=== PATIENT | male | born 1955 | race Caucasian/White ===

== ENCOUNTER → 2024-11-02 | Outpatient (CLI) | payer MEDICARE ==
[2024-11-02 15:33] LABS: Basophils # (A) 0.05 X 10*3/uL (0.00-0.10); Basophils % (A) 0.7 %; Eosinophils # (A) 0.13 X 10*3/uL (0.04-0.35); Eosinophils % (A) 1.9 %; HCT 47.6 % (39.6-50.0); HGB 15.6 g/dL (13.0-17.0); Immature Grans, Automated 0.30 %; Lymphocytes # (A) 2.47 X 10*3/uL (0.90-5.00); Lymphocytes % (A) 35.7 %; MCH 30.5 pg (27.0-32.0); MCHC 32.8 g/dL (32.0-37.0); MCV 93.0 FL (80.0-97.0); Monocytes # (A) 0.52 X 10*3/uL (0.20-1.00); Monocytes % (A) 7.5 %; NRBC Per 100 WBC 0 X 10*3/uL (0.00-0.01); Neutrophils # (A) 3.72 X 10*3/uL (1.80-7.70); Neutrophils % (A) 53.9 %; Platelet Count 279 X 10*3/uL (140-440); RBC 5.12 X 10*6/uL (4.40-5.60); RDW 12.9 % (11.5-14.5); WBC 6.91 X 10*3/uL (4.50-10.00)
[2024-11-02 15:46] LABS: Anion Gap 13.00 mmol/L (4.00-12.00); BUN/Creat Ratio 13.62 Ratio (12.00-20.00); Blood Urea Nitrogen 17.7 mg/dL (9.0-27.0); Calcium 9.8 mg/dL (8.7-10.3); Carbon Dioxide 25.0 mmol/L (21.6-31.8); Chloride 102 mmol/L (96-109); Glucose 156 mg/dL (70-110); Potassium 3.8 mmol/L (3.5-5.5); Sodium 140 mmol/L (135-145)
== END | disposition home or self-care (01) ==
LOC: LABPAT 09:14
PROVIDERS: ATTEND Urology
DX: Z01.812 Encounter for preprocedural laboratory examination (principal); R97.20 Elevated prostate specific antigen [PSA]
CPT/HCPCS: 80048; 85025

== ENCOUNTER 2024-11-05 09:13 | Day surgery (SDC) | payer MEDICARE ==
[2024-11-02 13:18] VITALS: BMI 37.5
--- NOTE | 2024-11-02 17:41 | P.GSHP ---
History of Present Illness H&P Date: 11/02/24 Chief Complaint: Elevated PSA level The patient is a 69-year-old white male with a persistently elevated PSA level, most recently 11.5. He has no family history of prostate cancer. He reports moderate obstructive voiding symptoms but has been verified to be emptying his bladder completely. Prostate MRI reveals a prostate volume of 201 cc with a PI- RADS 4 lesion seen within the right apical peripheral zone. - Cardiovascular Cardiovascular: Reports high blood pressure - Genitourinary (Male) Genitourinary: Reports nocturia, Reports urinary hesitancy Past Medical History Past Medical History: Hyperlipidemia, Hypertension, Prostate Disorder Additional Past Medical History / Comment(s): Elevated PSA; Hx Hep C History of Any Multi-Drug Resistant Organisms: None Reported Past Surgical History: Appendectomy, Hernia Repair Additional Past Surgical History / Comment(s): Back surgery; elbow surgery Past Anesthesia/Blood Transfusion Reactions: No Reported Reaction Smoking Status: Never smoker Medications and Allergies Home Medications Medication Instructions Recorded Confirmed Type Atorvastatin Calcium 20 mg PO DAILY 11/02/24 11/02/24 History Ciprofloxacin HCl [Cipro] 500 mg PO BID 11/02/24 11/02/24 History Ibuprofen [Motrin Ib] 200 mg PO DIRECTED 11/02/24 11/02/24 History Lisinopril-Hctz 20-25 mg 20 mg PO BID 11/02/24 11/02/24 History [Zestoretic 20-25] Magnesium 300 mg PO DAILY 11/02/24 11/02/24 History Metoprolol Succinate (ER) [Toprol 25 mg PO DAILY 11/02/24 11/02/24 History Xl] Metoprolol Succinate (ER) [Toprol 100 mg PO DAILY 11/02/24 11/02/24 History Xl] Multivit-Minerals/Folic Acid 1 cap PO DAILY 11/02/24 11/02/24 History [Centrum Men 50 Plus Multigummy] Tamsulosin HCl [Flomax] 0.4 mg PO HS 11/02/24 11/02/24 History amLODIPine BESYLATE 10 mg PO DAILY 11/02/24 11/02/24 History Allergies Allergy/AdvReac Type Severity Reaction Status Date / Time No Known Allergies Allergy Verified 11/02/24 13:05 Surgical - Exam - General well developed, well nourished, no distress - Respiratory normal respiratory effort - Genitourinary normal penis with no external lesions, testicles non-tender - Rectum Rectum: normal sphincter tone, no masses, other (Prostate enlarged but smooth) - Psychiatric oriented to time, oriented to person, oriented to place, speech is normal, memory intact Assessment and Plan (1) Elevated prostate specific antigen [PSA] Status: Acute Code(s): R97.20 - ELEVATED PROSTATE SPECIFIC ANTIGEN [PSA] SNOMED Code(s): 720160974 Plan: The patient will undergo MRI-Ultrasound fusion transrectal biopsies of the prostate. The procedure has been reviewed in detail with the patient. He has been made aware of potential risks, which include anesthesia, bleeding, and infection. He is also aware that a negative biopsy does not completely rule out prostate cancer.
[2024-11-05] MEDS: IV FLUID CONTINUATION 1,000 ML IV ONE (10:25)
[2024-11-05 10:31] VITALS: TEMP 98.3
[2024-11-05] MEDS: GENTAMICIN 40 MG/ML 2 ML VIAL IM PRN (10:51)
[2024-11-05] MEDS ORDERED: PROPOFOL 10 MG/ML 20 ML VIAL IV ONE (12:02)
[2024-11-05] MEDS ORDERED: PHENYLEPHRINE 10 MG/ML VIAL ONE (12:02)
[2024-11-05] MEDS ORDERED: fentaNYL (PF) 50 MCG/ML 2 ML AMP ONE (12:02)
[2024-11-05] MEDS ORDERED: MIDAZOLAM 2 MG/2 ML VIAL ONE (12:02)
--- NOTE | 2024-11-05 12:25 | P.OP ---
Date of Procedure: 11/05/24 Preoperative Diagnosis: Elevated PSA level Postoperative Diagnosis: Same Procedure(s) Performed: MRI fusion biopsies of the prostate Anesthesia: MAC Surgeon: Franky Fernandez Estimated Blood Loss (ml): 5 IV fluids (ml): 200 Pathology: other (Prostate biopsies) Condition: stable Disposition: PACU Indications for Procedure: The patient is a 69-year-old white male with a persistently elevated PSA level, most recently 11.5. He has no family history of prostate cancer. He reports moderate obstructive voiding symptoms but has been verified to be emptying his bladder completely. Prostate MRI reveals a prostate volume of 201 cc with a PI- RADS 4 lesion seen within the right apical peripheral zone. Operative Findings: Vague area of hypoechogenicity in the area of MRI abnormality. Description of Procedure: The patient was taken to the operating room and placed in the left lateral decubitus position. DION revealed the prostate to be enlarged but smooth. The Fillm transrectal ultrasound probe was placed intrarectally. It was then placed within the stand of the [facility] MRI/TRUS Fusion for Prostate Biopsy system. The prostate was imaged in both the axial and sagittal planes, revealing a prostate volume of 120 mL. Using the Biopty gun, 3 biopsies were obtained from the target lesion located posteriorly within the right apical peripheral zone. The remaining 12 biopsies of the peripheral zone were obtained utilizing a standard template. Once the procedure was completed, the ultrasound probe was removed. The patient tolerated the procedure well was taken to the recovery room stable condition.
[2024-11-05 12:41] VITALS: RESP 14
[2024-11-05 12:56] VITALS: BP 110/72; PULSE 74
== END 2024-11-05 13:03 | disposition home or self-care (01) ==
LOC: OR 09:13
PROVIDERS: ATTEND Urology
DX: C61 Malignant neoplasm of prostate (principal); R97.20 Elevated prostate specific antigen [PSA]; E78.5 Hyperlipidemia, unspecified; I10 Essential (primary) hypertension; R39.11 Hesitancy of micturition
CPT/HCPCS: 55700; G0416; 88305